=== PATIENT | male | born 1995 | race Caucasian/White ===

== ENCOUNTER 2017-05-20 09:29 | Emergency (ER) | payer OTHER ==
--- NOTE | 2017-05-20 09:42 | EDPHY ---
H & P Stated Complaint: upper abd pain/n/v saw gastro/endoscopy last week Source: Patient, Old records Exam Limitations: No limitations - Personal History Current Tetanus/Diphtheria Vaccine: Yes Tetanus Vaccine Date: Within 10 years - Medical/Surgical History Hx Asthma: No Hx Chronic Respiratory Disease: No Hx Diabetes: No Hx Cardiac Disease: No Hx Renal Disease: No Hx Cirrhosis: No Hx Alcoholism: No Hx HIV/AIDS: No Hx Splenectomy or Spleen Trauma: No Other PMH: bipolar/choly - Social History Smoking Status: Never smoked Time Seen by Provider: 05/20/17 09:42 HPI/ROS: HPI: This is a 21-year-old male who presents with Chief Complaint: upper abd pain/n/v saw gastro/endoscopy last week Location: Epigastric Quality: Nausea vomiting Duration: 2 days Signs and Symptoms: no fever, + nausea, + vomiting, no hematemesis, no blood in stool, no abdominal bloating, no diarrhea, no back pain, no urinary symptoms, no testicular/groin pain, no indigestion, no chest pain, no shortness of breath Timing: Acute on chronic Severity: Moderate Context: Patient has a history of GERD with what sounds like esophagitis presents with 2 day history of constant nagging nausea and 2 episodes of vomiting in the last 2 days. Patient reports that he had an EGD by [facility]astroenterology of the [facility] last and per patient was found to be negative H pylori, ulcer disease and positive inflammation. Patient was started on omeprazole 1 tab daily. He has a follow-up appointment with Gastroenterology of the [facility] next . He has been trying to modify his diet to avoid foods that causes symptoms. Denies fever/urinary symptoms/ hematemesis/blood in stool/diarrhea/back pain. History of cholecystectomy. Modifying Factors: Omeprazole Comment: ROS: see HPI Constitutional: No fever, no chills, no weight loss Eyes: No blurred vision Respiratory: No shortness of breath, no cough Cardiovascular: No chest pain, no palpitations Gastrointestinal: No nausea, no vomiting, no diarrhea, no hematemesis, no blood in stool Genitourinary: No dysuria, no blood in urine Extremities: No myalgias, no edema Neurologic: No weakness, no numbness Skin: No rashes, no petechiae Hematologic: No bruising, no bleeding MEDICAL/SURGICAL/SOCIAL HISTORY: Medical history: Bipolar disorder Surgical history: Cholecystectomy Social history: Student CONSTITUTIONAL: Extremely well-appearing young adult white male, awake and alert, no obvious distress HEENT: Atraumatic and normocephalic, PERRL, EOMI. Tympanic membranes clear. Oropharynx clear, no exudate and moist pink mucosa. Airway patent. No lymphadenopathy. No meningismus. Cardiovascular: Normal S1/S2, regular rate, regular rhythm, without murmur rub or gallop. PULMONARY/CHEST: Symmetrical and nontender. Clear to auscultation bilaterally. Good air movement. No accessory muscle usage. ABDOMEN: Soft, nondistended, moderate epigastric tenderness, no rebound, no guarding, no peritoneal signs, no masses or organomegaly. No CVAT. Normoactive bowel sounds heard x4 EXTREMITIES: 2/2 pulses, strength 5/5, no deformities, no clubbing, no cyanosis or edema. NEUROLOGICAL: no focal neuro deficits. GCS 15. SKIN: Warm and dry, no erythema. Tattoos noted on arm no rash. Good capillary refill. (Sapphire Jaffe) Constitutional: Initial Vital Signs Temperature (C) 36.6 C 05/20/17 09:33 Heart Rate 82 05/20/17 09:33 Respiratory Rate 16 05/20/17 09:33 Blood Pressure 114/92 H 05/20/17 09:33 O2 Sat (%) 95 05/20/17 09:33 O2 Delivery Mode Room Air Allergies/Adverse Reactions: NUTMEG Allergy (Mild, Uncoded 05/20/17 09:31) Home Medications: Medication Instructions Recorded Sertraline HCl [Zoloft 100mg (*)] 100 mg PO HS #0 tab 07/07/15 lamoTRIgine [LaMICtal] 25 mg PO HS #0 tab 07/07/15 Omeprazole 40 mg PO BID #28 capsule. 05/20/17 Ondansetron Odt [Zofran Odt 4 mg 4 mg PO Q4 PRN #12 tab 05/20/17 (*)] Medical Decision Making ED Course/Re-evaluation: Labs, IV fluids, IV medications, abdominal x-ray series ordered Vital signs reviewed upon arrival and no systemic signs noted. Given 1 L normal saline, IV Zofran, IV Pepcid and GI cocktail upon arrival Abdominal series ordered and my read shows no acute free air or perforation, no opacity, no effusion, no widened mediastinum, no pneumothorax, + nonobstructive bowel gas pattern. 1045: Labs reviewed and grossly unremarkable 1100: Reassessed patient; reports feeling better and no nausea with minimal epigastric discomfort. Parents at bedside and reports that Dr. Pritchard suggested if the PPI did not improve symptoms starting on the low-dose TCA would be beneficial. Patient is to keep follow-up appointment in 6 days on with [facility]astroenterology of the [facility]. This patient was seen under the supervision of my secondary supervising physician. I evaluated care for this patient independently. (Sapphire Jaffe) The patient was evaluated and managed by the physician retail assistant manager. I have reviewed this chart and I agree with the findings and plan of care as documented , as indicated by my signature. I am the secondary supervising physician. ( Isaura Mullen) Differential Diagnosis: Abdominal pain including but not limited to perforation, constipation, gastritis and gastroenteritis. (Sapphire Jaffe) - Data Points Laboratory Results: Laboratory Results 05/20/17 10:16 05/20/17 10:16 Medications Given: Discontinued Medications Al Hydroxide/Mg Hydroxide (Maalox Susp) 30 ml PO ONCE ONE Stop: 05/20/17 10:15 Last Admin: 05/20/17 10:33 Dose: 30 ml Hyoscyamine Sulfate (Levsin, Hyomax-Sl) 0.25 mg PO ONCE ONE Stop: 05/20/17 10:15 Last Admin: 05/20/17 10:33 Dose: 0.25 mg Sodium Chloride (Ns) 1,000 mls @ 0 mls/hr IV EDNOW ONE; Wide Open PRN Reason: Protocol Stop: 05/20/17 10:15 Last Admin: 05/20/17 10:30 Dose: 1,000 mls Famotidine/Sodium Chloride (Pepcid 20 Mg (Premix)) 50 mls @ 200 mls/hr IV EDNOW ONE Stop: 05/20/17 10:28 Last Admin: 05/20/17 10:30 Dose: 50 mls Lidocaine (Lidocaine 2% Viscous) 15 ml PO ONCE ONE Stop: 05/20/17 10:15 Last Admin: 05/20/17 10:33 Dose: 15 ml Ondansetron HCl (Zofran) 4 mg IVP EDNOW ONE Stop: 05/20/17 10:15 Last Admin: 05/20/17 10:31 Dose: 4 mg Departure - Departure Disposition: Home, Routine, Self-Care Clinical Impression: GERD with esophagitis Condition: Good Instructions: Diet for Stomach Ulcers and Gastritis (ED), Gastroesophageal Reflux Disease (ED) Additional Instructions: Consume a minimum of 8-10 glasses of water or electrolyte fluid replacement drinks that include Gatorade, Powerade, Pedialyte. Eat a bland diet consisting of 68 small meals per day for the next 48 hours and then slowly advance as tolerated. Follow GERD/gastritis diet. Take Zofran 1 tab every 4 hours as needed for nausea, vomiting. Increase your Omeprazole to 40 mg twice daily x 2 weeks and then decrease to 40 mg once daily. Return to the Emergency Room if symptoms do not resolve in the next 48-72 hours , you spike a fever > 102 F, or experience intractable abdominal pain/nausea/ vomiting. Referrals: Juarez Rodriguez MD [Medical Doctor] - As per Instructions Prescriptions: Omeprazole 40 mg PO BID #28 capsule. Ondansetron Odt [Zofran Odt 4 mg (*)] 4 mg PO Q4 PRN #12 tab PRN Reason: Nausea/Vomiting, Use 1st
[2017-05-20] MEDS ORDERED: NS 1,000 ML IV ONE (10:14)
[2017-05-20] MEDS ORDERED: FAMOTIDINE 20 MG/NACL 50 ML IV ONE (10:14)
[2017-05-20] MEDS ORDERED: ONDANSETRON 4 MG/2 ML VIAL IVP ONE (10:14)
[2017-05-20] MEDS ORDERED: MAG HYDROX/AL HYDROX/SIMETH 30 ML UDCUP PO ONE (10:14)
[2017-05-20] MEDS ORDERED: HYOSCYAMINE SULFATE 0.125 MG TAB PO ONE (10:14)
[2017-05-20] MEDS ORDERED: LIDOCAINE 2% VISCOUS 15 ML UDCUP PO ONE (10:14)
[2017-05-20 10:25] LABS: PLATELET COUNT 250 10^3/uL (150-400)
[2017-05-20 12:05] VITALS: BP 107/72; PULSE 92; RESP 18; TEMP 99.1; O2SAT 92
== END 2017-05-20 12:10 | disposition home or self-care (01) ==
DX: K21.0 Gastro-esophageal reflux disease with esophagitis (principal); E86.9 Volume depletion, unspecified; Z90.49 Acquired absence of other specified parts of digestive tract
CPT/HCPCS: 96374; J2405

== ENCOUNTER 2017-05-27 09:00 | Emergency (ER) | payer OTHER ==
[2017-05-27 09:06] VITALS: TEMP 97.5
[2017-05-27 09:54] LABS: PLATELET COUNT 259 10^3/uL (150-400)
--- NOTE | 2017-05-27 09:54 | EDPHY ---
H & P Smoking Status: Never smoked Time Seen by Provider: 05/27/17 09:12 HPI/ROS: CHIEF COMPLAINT: Abdominal pain, nausea HISTORY OF PRESENT ILLNESS: 21-year-old male presents to the emergency department with diffuse abdominal pain and feeling nauseous. Patient states he has had intermittent chronic abdominal pain for years that has been getting worse especially over last few months. He had a recent EGD with the [facility] 2 weeks ago which revealed some generalized inflammation however all the biopsies were negative. He is scheduled to have a gastric emptying test which she has not yet scheduled. He feels nauseous. He has not vomited today. He used to have problems with vomiting especially after he ate or drank anything. No diarrhea. No history of melena. No blood in his stool. No chest pain or difficulty breathing. No chest pain or difficulty breathing. Patient states that he is unable to go to work. He was given some medication at the GI office yesterday which she just started yesterday but he does another name. He states "it something like omeprazole but stronger". REVIEW OF SYSTEMS: Constitutional: No fever, no chills. Eyes: No double or blurry vision. ENT: No sore throat. Respiratory: No cough, no shortness of breath. Cardiac: No chest pain. Gastrointestinal: Abdominal pain as above. No diarrhea. No melena. No rectal bleeding. Genitourinary: No dysuria. Musculoskeletal: No neck or back pain. Skin: No rashes. Neurological: No headache. (Shelby Meza) Past Medical/Surgical History: Chronic abdominal pain, cholecystectomy in 2013 (Shelby Meza) Social History: Single (Shelby Meza) Physical Exam: General Appearance: Alert, no distress. Afebrile. Eyes: Pupils equal and round. Extraocular motions are all intact. ENT: Mouth: Mucous membranes moist. Respiratory: No wheezing, rhonchi, or rales, lungs are clear to auscultation. Cardiovascular: Regular rate and rhythm. Gastrointestinal: Abdomen is soft. Diffuse tenderness with palpation. He has positive rebound tenderness. He has guarding. No CVA tenderness bilaterally however this does cause pain in the abdomen. Neurological: Alert and oriented x 3, cranial nerves II through XII grossly intact Skin: Warm and dry, no rashes. Musculoskeletal: Nontender to palpate along the cervical, thoracic or lumbar spine. Neck is supple. Extremities: Full range of motion and no peripheral edema. Psychiatric: Patient is oriented X 3, there is no agitation. (Shelby Meza) Constitutional: Initial Vital Signs Temperature (C) 36.4 C 05/27/17 09:04 Heart Rate 84 05/27/17 09:04 Respiratory Rate 16 05/27/17 09:04 Blood Pressure 116/63 05/27/17 09:04 O2 Sat (%) 93 05/27/17 09:04 O2 Delivery Mode Room Air Allergies/Adverse Reactions: NUTMEG Allergy (Mild, Uncoded 05/20/17 09:31) Home Medications: Medication Instructions Recorded Sertraline HCl [Zoloft 100mg (*)] 100 mg PO HS #0 tab 07/07/15 lamoTRIgine [LaMICtal] 25 mg PO HS #0 tab 07/07/15 Omeprazole 40 mg PO BID #28 capsule. 05/20/17 Ondansetron Odt [Zofran Odt 4 mg 4 mg PO Q4 PRN #12 tab 05/20/17 (*)] Dicyclomine [Bentyl] 20 mg PO QID #10 tab 05/27/17 Medical Decision Making - Diagnostics Imaging: Discussed imaging studies w/ purler Radiologist ED Course/Re-evaluation: 21-year-old male presents to the emergency department with abdominal pain. Laboratory studies were all unremarkable. I spoke with the on-call returning officer, Dr. Raleigh Garcia about this patient. He agreed with CT scan of the abdomen and pelvis. He also recommended follow-up in their clinic. CT imaging of the abdomen pelvis with IV contrast was essentially normal. There is some mild thickening of the proximal ascending colon. No evidence of perforation. No free fluid. No masses. Patient was given 20 mg of Bentyl p.o.. Encouraged to have close follow-up with returning officer next week to recheck. He understands that he should return to the emergency department immediately if he develops worsening abdominal pain, fever, shortness of breath, or if he feels worse in any way. Patient verbalized understanding and agreed. Upon discharge the patient is "starving". (Shelby Meza) I did not see this patient while he was in the emergency department. However his care was discussed with the PA while the patient was in the department. I agree with treatment plan and management (Nino Zapata) - Data Points Laboratory Results: Laboratory Results 05/27/17 09:10 05/27/17 09:10 Medications Given: Discontinued Medications Dicyclomine HCl (Bentyl) 20 mg PO EDNOW ONE Stop: 05/27/17 12:13 Last Admin: 05/27/17 12:18 Dose: 20 mg Departure - Departure Disposition: Home, Routine, Self-Care Clinical Impression: Abdominal pain Condition: Good Instructions: Abdominal Pain (ED) Additional Instructions: Follow up with GI doctor as discussed. Bentyl as needed for abdominal cramping. Diet and activity as tolerated. Abdominal Pain: Return to the Emergency Department immediately for increasing pain, fever, vomiting, or if not completely better in 8-12 hours. Referrals: Raleigh Garcia MD [Medical Doctor] - 2-3 days without fail (Battery Tester hat ironer ) Prescriptions: Dicyclomine [Bentyl] 20 mg PO QID #10 tab
[2017-05-27] MEDS ORDERED: IOPAMIDOL (ISOVUE-300) 100 ML BTL ONE (10:38)
[2017-05-27] MEDS ORDERED: DICYCLOMINE 10 MG CAP PO ONE (12:12)
[2017-05-27 12:32] VITALS: BP 124/70; PULSE 68; RESP 14; O2SAT 98
== END 2017-05-27 12:31 | disposition home or self-care (01) ==
DX: R10.84 Generalized abdominal pain (principal); Z90.49 Acquired absence of other specified parts of digestive tract
CPT/HCPCS: Q9967

== ENCOUNTER 2017-07-28 08:55 | Emergency (ER) | payer OTHER ==
[2017-07-28] MEDS ORDERED: NS 1,000 ML IV ONE (09:41)
--- NOTE | 2017-07-28 09:43 | EDPHY ---
H & P Stated Complaint: "ticks" Time Seen by Provider: 07/28/17 09:23 HPI/ROS: CHIEF COMPLAINT: "I just feel weird" HISTORY OF PRESENT ILLNESS: 21-year-old male history of bipolar disorder arrives via private vehicle stating that for the past 1 week ever since receiving colonoscopy by [facility] with sedation with Versed he has been experiencing muscular tics, muscular spasms, feeling a sense of imbalance, feeling sense of difficulty walking secondary to his imbalance. He denies: Hallucination, suicidal or homicidal ideation, missed medication, new medication, self injurious behavior PRIMARY CARE PROVIDER: REVIEW OF SYSTEMS: A ten point review of systems was performed and is negative with the exception of the items mentioned in the HPI PAST MEDICAL & SURGICAL HISTORY: Bipolar disorder. SOCIAL HISTORY:Denies acute alcohol or drug use. PHYSICAL EXAM (Prior to examination, patient consented to physical exam, hands were washed and my usual and customary physical exam procedures followed) 1) GENERAL: Well-developed, well-nourished, alert and oriented. Appears to be in no acute distress. Answering questions appropriately 2) HEAD: Normocephalic, atraumatic 3) HEENT: Pupils equal, round, reactive to light bilaterally. Sclera anicteric. Nasopharynx, oropharynx, clear, no lesions. Ears bilaterally with normal tympanic membranes. 4) NECK: Full range of motion, no meningeal signs. 5) LUNGS: Clear auscultation bilaterally, no wheezes, no rhonchi, no retractions. 6) HEART: Regular rate and rhythm, no murmur, no heave, no gallop. 7) ABDOMEN: No guarding, no rebound, no focal tenderness, negative McBurney's, negative Alejo's, negative Rovsing's, negative peritoneal sign, 8) MUSCULOSKELETAL: Moving all extremities, no focal areas of tenderness, no obvious trauma. No peripheral edema or discoloration. 9) BACK: No CVA tenderness, no midline vertebral tenderness, no fluctuance, no step-off, no obvious trauma, no visual or palpable abnormality. 10) SKIN: No rash, no petechiae. 11) Psychiatric: Patient is oriented X 3, there is no agitation. 12) NEURO: Awake, alert, and oriented to person, place and time. Answers questions appropriately. Heel to toe function is non normal. Cranial nerves 2 through to 12 intact. Gait is mildly ataxic. Upper and lower extremities bilaterally with strength 5 / 5, reflexes 2+. DIFFERENTIAL DIAGNOSIS: In no particular order including but not limited to cerebellar infarct, malignancy, medication adverse effect, acute psychosis - Personal History Current Tetanus/Diphtheria Vaccine: Yes Current Tetanus Diphtheria and Acellular Pertussis (TDAP): Yes Tetanus Vaccine Date: Within 10 years - Medical/Surgical History Hx Asthma: No Hx Chronic Respiratory Disease: No Hx Diabetes: No Hx Cardiac Disease: No Hx Renal Disease: No Hx Cirrhosis: No Hx Alcoholism: No Hx HIV/AIDS: No Hx Splenectomy or Spleen Trauma: No Other PMH: bipolar, isidro, - Social History Smoking Status: Never smoked Constitutional: Initial Vital Signs Temperature (C) 37.1 C 07/28/17 09:00 Heart Rate 86 07/28/17 09:00 Respiratory Rate 16 07/28/17 09:00 Blood Pressure 126/100 H 07/28/17 09:00 O2 Sat (%) 97 07/28/17 09:00 O2 Delivery Mode Room Air Allergies/Adverse Reactions: NUTMEG Allergy (Mild, Uncoded 05/20/17 09:31) Home Medications: Medication Instructions Recorded Sertraline HCl [Zoloft 100mg (*)] 100 mg PO HS #0 tab 07/07/15 lamoTRIgine [LaMICtal] 25 mg PO HS #0 tab 07/07/15 Medical Decision Making - Diagnostics Imaging Results: Imaging Impressions Brain MRI 07/28/17 10:11 Impression: Normal MRI of the brain without and with contrast. Results called and discussed with Bernarda Mccray PA-C, at 07/28/2017 11:35. Images reviewed by myself ED Course/Re-evaluation: I discussed this case with Dr. April Marin, secondary supervising physician in the ER, after evaluating the patient. Patient complains of a new ataxic gait is noted to have mild cerebellar dysfunction, specifically heel to toe on evaluation. This is the 1st time I am evaluating the patient and he states that this is new for him. I recommended laboratory studies and MRI. Discussed this with the patient and his parents and they are in agreement. 11:47 a.m.: Re-evaluation. Patient appears well. He is answering questions appropriately. I discussed the laboratory studies which are grossly unremarkable as well as the normal MRI of the brain showing no evidence of cerebellar infarct, malignancy, hemorrhage. The specific etiology of his symptoms is incompletely clear at this time. From the emergency department I do not think that further diagnostic studies are indicated. I do not think that hospitalization is indicated. We discussed his normal CK, no evidence of rhabdomyolysis. He feels comfortable being discharged. Recommend he follow up with psychiatrist tomorrow (Tuesday) or at a minimum let his psychiatrist know that he was in the ER today. He has been given copies of his diagnostic studies - Data Points Laboratory Results: Laboratory Results 07/28/17 09:51 07/28/17 09:51 07/28/17 07/28/17 09:51 09:51 WBC 6.65 10^3/uL 10^3/uL (3.80-9.50) RBC 5.72 10^6/uL 10^6/uL (4.40-6.38) Hgb 16.3 g/dL g/dL (13.7-17.5) Hct 47.4 % % (40.0-51.0) MCV 82.9 fL fL (81.5-99.8) MCH 28.5 pg pg (27.9-34.1) MCHC 34.4 g/dL g/dL (32.4-36.7) RDW 12.4 % % (11.5-15.2) Plt Count 263 10^3/uL 10^3/uL (150-400) MPV 10.5 fL fL (8.7-11.7) Neut % (Auto) 50.0 % % (39.3-74.2) Lymph % (Auto) 38.8 % % (15.0-45.0) Mccreary % (Auto) 9.0 % % (4.5-13.0) Eos % (Auto) 1.5 % % (0.6-7.6) Baso % (Auto) 0.5 % % (0.3-1.7) Nucleat RBC Rel Count 0.0 % % (0.0-0.2) Absolute Neuts (auto) 3.33 10^3/uL 10^3/uL (1.70-6.50) Absolute Lymphs (auto) 2.58 10^3/uL 10^3/uL (1.00-3.00) Absolute Monos (auto) 0.60 10^3/uL 10^3/uL (0.30-0.80) Absolute Eos (auto) 0.10 10^3/uL 10^3/uL (0.03-0.40) Absolute Basos (auto) 0.03 10^3/uL 10^3/uL (0.02-0.10) Absolute Nucleated RBC 0.00 10^3/uL 10^3/uL (0-0.01) Immature Gran % 0.2 % % (0.0-1.1) Immature Gran # 0.01 10^3/uL 10^3/uL (0.00-0.10) Sodium 143 mEq/L mEq/L (135-145) Potassium 4.5 mEq/L mEq/L (3.5-5.2) Chloride 104 mEq/L mEq/L (97-110) Carbon Dioxide 24 mEq/l mEq/l (22-31) Anion Gap 15 mEq/L mEq/L (8-16) BUN 12 mg/dL mg/dL (7-23) Creatinine 0.8 mg/dL mg/dL (0.7-1.3) Estimated GFR > 60 Glucose 87 mg/dL mg/dL (70-100) Calcium 10.0 mg/dL mg/dL (8.5-10.4) Creatine Kinase 84 IU/L IU/L (0-224) Medications Given: Discontinued Medications Sodium Chloride (Ns) 1,000 mls @ 0 mls/hr IV ONCE ONE PRN Reason: Wide Open Stop: 07/28/17 09:42 Last Admin: 07/28/17 09:50 Dose: 1,000 mls Departure - Departure Disposition: Home, Routine, Self-Care Clinical Impression: Acute tic disorder Condition: Good Instructions: Tic Disorder (ED) Additional Instructions: Return to the ER if you develop hallucinations, new or worsening symptoms or any other symptoms that concern you. Referrals: Follow-up, with your psychiatrist in 1 day [Other] - As per Instructions
[2017-07-28 10:04] LABS: PLATELET COUNT 263 10^3/uL (150-400)
[2017-07-28 10:20] LABS: CREATINE KINASE 84 IU/L (0-224)
[2017-07-28] MEDS ORDERED: GADOBUTROL 10 ML VIAL IVP ONE (11:00)
[2017-07-28 12:16] VITALS: BP 133/71
== END 2017-07-28 12:16 | disposition home or self-care (01) ==
DX: F95.9 Tic disorder, unspecified (principal)
CPT/HCPCS: A9585